=== PATIENT | male | born 1945 | race Hispanic/Latino ===

== ENCOUNTER 2024-05-04 04:18 | Emergency (ER) | payer MEDICARE ==
[~2024-05-04] VITALS: Ht 180.3 cm; Wt 94.3 kg
[2024-05-04 04:25] VITALS: TEMP 98.1
[2024-05-04 04:59] LABS: BILIRUBIN,URINE NEGATIVE (NEGATIVE); CLARITY,URINE CLEAR (CLEAR); COLOR,URINE YELLOW (YELLOW); GLUCOSE, URINE NEGATIVE (NEGATIVE); KETONES,URINE NEGATIVE (NEGATIVE); LEUKOCYTE ESTERASE ,URINE NEGATIVE (NEGATIVE); NITRITE,URINE NEGATIVE (NEGATIVE); PH,URINE 5.5 (5 - 7); PROTEIN,URINE DIPSTICK NEGATIVE (NEGATIVE); URINE UROBILINOGEN 0.2 mg/dL (0.2 - 1)
[2024-05-04 05:10] LABS: BACTERIA,URINE MODERATE /HPF; EPITHELIAL CELLS,URINE FEW /LPF
[2024-05-04 05:12] VITALS: PULSE 86; RESP 17; O2SAT 97
[2024-05-04] MEDS ORDERED: CEFDINIR300 MG PO (05:17)
== END 2024-05-04 05:22 | disposition home or self-care (01) ==
LOC: ER 04:23
DX: R33.9 Retention of urine, unspecified (principal); N39.0 Urinary tract infection, site not specified
CPT/HCPCS: 51700; 81001; 87086; 99283